=== PATIENT | female | born 1965 | race African-American/Black ===

== ENCOUNTER 2017-12-29 20:47 | Emergency (ER) | payer OTHER ==
--- NOTE | 2017-12-29 21:17 | ER Document Report ---
ED General - General Information source: Patient <ALISHA GOMEZ - Last Filed: 12/29/17 22:03> <MIGDALIA REDDING - Last Filed: 12/29/17 23:21> - General Chief Complaint: Psych Problem Stated Complaint: IVC WITH PAPERS Time Seen by Provider: 12/29/17 21:11 Notes: 52 y.o female with a PMHx of DM and RT hip surgery due to trauma from a . Patient presents to the ED with attempted suicide by carbon monoxide asphyxiation. Son normally keeps in touch with her daily and states that he had not heard from her in 5-6 days because she was not answering the phone. Pt was found in the garage by her son and pt had reported to the police that she was in there for about an hour and a half. Patient denies any recent problems with her son, she states that she was "trying to alleviate the pain" and that she is heartbroken due to her marriage. Pt denies any other medical issues. Patient does not wish to be here and does not have any complaints at this time. (ALISAH GOMEZ) History from the petitioning Installation Tech is that he was dispatched to the house for a welfare check and found the patient in a closed garage in her car with the car running. The son had called 911 requesting a welfare check because he had not heard from his mother in 5 days. The son lives in [place] by history, and is supposed to be on his way here. 2 hours after I was told the son was on his way, he still has not shown up. The deputy earlier stated that he tried to call the son several times but could not get an answer. The patient reports that she wanted to alleviate her pain related to a recent breakup in her marriage. The patient is unwilling to cooperate, despite me telling her that she was here under an involuntary civil commitment order issued by [employer] Knocker and executed by a deputy harbormaster. Splint to her that she does not have a choice in the matter at this time and would be easier on everyone if she would just go along with the nursing staff. She later became quite confrontational, screaming and yelling and had to be restrained. 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 <JASONALISHA ENAMORADO - Last Filed: 12/29/17 22:03> Review of Systems - Review of Systems Constitutional: No symptoms reported EENT: No symptoms reported Cardiovascular: No symptoms reported Respiratory: No symptoms reported Gastrointestinal: No symptoms reported Genitourinary: No symptoms reported Female Genitourinary: No symptoms reported Musculoskeletal: No symptoms reported Skin: No symptoms reported Hematologic/Lymphatic: No symptoms reported Neurological/Psychological: See HPI, Suicidal ideation - in garage with car running -: Yes All other systems reviewed and negative <ALISHA GOMEZ - Last Filed: 12/29/17 22:03> Physical Exam <ALISHA GOMEZ - Last Filed: 12/29/17 22:03> <MIGDALIA REDDING - Last Filed: 12/29/17 23:21> - Notes Notes: General: Alert. Appears despondent and depressed. HEENT: Normocephalic. Atraumatic. PERRL. Extraocular movements intact. Oropharynx clear. Neck: Supple. Non-tender. Respiratory: No respiratory distress. Clear and equal breath sounds bilaterally. Cardiovascular: Regular rate and rhythm. Abdominal: Normal Inspection. Non-tender. No distension. Normal Bowel Sounds. Back: Non-tender. No deformity or step off. Extremities: Moves all four extremities. Upper extremities: Normal inspection. Normal ROM. Lower extremities: Normal inspection. No edema. Normal ROM. Neurological: Normal cognition. AAOx4. Normal speech. Psychological: Normal affect. Normal Mood. Skin: Warm. Dry. Normal color. (ALISHA GOMEZ) Course <ALISHA GOMEZ - Last Filed: 12/29/17 22:03> - Laboratory Result Diagrams: 12/29/17 21:56 12/29/17 21:56 - EKG Interpretation by Nm EKG shows normal: Sinus rhythm, [place], Intervals, QRS Complexes, ST-T Waves Rate: Normal - 98 Rhythm: NSR <MIGDALIA REDDING - Last Filed: 12/29/17 23:21> - Re-evaluation Re-evalutation: 12/29/17 23:05 The patient was uncooperative with staff, she refused to accept the fact that she came in under a civil commitment proceeding. Eventually she had to be put in restraints. (MIGDALIA REDDING) - Laboratory Laboratory results interpreted by me: 12/29/17 21:56 Glucose 119 H AST 68 H ALT 112 H Salicylates < 1.0 L Acetaminophen < 10 L Discharge <ALISHA GOMEZ - Last Filed: 12/29/17 22:03> <MIGDALIA REDDING - Last Filed: 12/29/17 23:21> - Discharge Clinical Impression: Suicide attempt by carbon monoxide poisoning Qualifiers: Encounter type: initial encounter Qualified Code(s): T58.92XA - Toxic effect of carbon monoxide from unspecified source, intentional self-harm, initial encounter Depression Qualifiers: Depression Type: unspecified Qualified Code(s): F32.9 - Major depressive disorder, single episode, unspecified Condition: Stable Disposition: PSYCH HOSP/UNIT Scribe Attestation: 12/29/17 21:57 I personally performed the services described in the documentation, reviewed and edited the documentation which was dictated to the scribe in my presence, and it accurately records my words and actions. (MIGDALIA REDDING) Scribe Documentation - Scribe Written by Oliviaibe:: Leo Bradford [id number] acting as scribe for :: Gabi <ALISHA GOMEZ - Last Filed: 12/29/17 22:03>
[2017-12-29 22:22] LABS: ABSOLUTE EOSINOPHILS # (AUTO) 0.1 10^3/uL (0.0-0.6); ABSOLUTE LYMPHOCYTES (AUTO) 2.3 10^3/uL (0.5-4.7); ABSOLUTE MONOCYTES (AUTO) 0.4 10^3/uL (0.1-1.4); ABSOLUTE NEUT (AUTO) 2.2 10^3/uL (1.7-8.2); BASOPHILS % (AUTO) 0.9 % (0-2); EOSINOPHILS % (AUTO) 2.3 % (0-6); HEMATOCRIT 42.5 % (36.0-47.0); HEMOGLOBIN 14.2 g/dL (12.0-15.5); LYMPHOCYTES % (AUTO) 44.4 % (13-45); MEAN CORPUSCULAR HEMOGLOBIN 29.3 pg (27.0-33.4); MEAN CORPUSCULAR HGB CONC 33.6 g/dL (32.0-36.0); MEAN CORPUSCULAR VOLUME 87 fl (80-97); MONOCYTES % (AUTO) 8.6 % (3-13); PLATELET COUNT 266 10^3/uL (150-450); RED BLOOD COUNT 4.86 10^6/uL (3.72-5.28); RED CELL DISTRIBUTION WIDTH 13.5 % (11.5-14.0); SEGMENTED NEUTROPHILS % (AUTO) 43.8 % (42-78); TOTAL CELLS COUNTED % (AUTO) 100 %; WHITE BLOOD COUNT 5.1 10^3/uL (4.0-10.5)
[2017-12-29 22:29] LABS: ALANINE AMINOTRANSFERASE 112 U/L (9-52); ALBUMIN 4.7 g/dL (3.5-5.0); ALKALINE PHOSPHATASE 83 U/L (38-126); ANION GAP 13 (5-19); ASPARTATE AMINO TRANSFERASE 68 U/L (14-36); BILIRUBIN,DIRECT 0.3 mg/dL (0.0-0.4); BILIRUBIN,TOTAL 0.6 mg/dL (0.2-1.3); BLOOD UREA NITROGEN 8 mg/dL (7-20); CARBON DIOXIDE 27 mmol/L (22-30); CHLORIDE 103 mmol/L (98-107); GLUCOSE 119 mg/dL (75-110); POTASSIUM 3.6 mmol/L (3.6-5.0); SODIUM 142.7 mmol/L (137-145); TOTAL PROTEIN 7.4 g/dL (6.3-8.2)
[2017-12-29 22:40] LABS: ACETAMINOPHEN < 10 ug/mL (10-30); ALCOHOL < 10 mg/dL (NONE DETECTED); SALICYLATE < 1.0 mg/dL (2.0-20.0)
[2017-12-29] MEDS ORDERED: LORAZEPAM 1 MG TABLET PO ONE (23:22)
[2017-12-29] MEDS ORDERED: DIPHENHYDRAMINE HCL 25 MG CAPSULE PO ONE (23:22)
[2017-12-30 02:24] LABS: APPEARANCE,URINE CLEAR; BILIRUBIN,URINE NEGATIVE (NEGATIVE); COLOR,URINE YELLOW; GLUCOSE, URINE NEGATIVE (NEGATIVE); KETONES,URINE 20 mg/dL (NEGATIVE); LEUKOCYTE ESTERASE,URINE TRACE (NEGATIVE); NITRITE,URINE NEGATIVE (NEGATIVE); PROTEIN,URINE NEGATIVE (NEGATIVE); URINE SPECIFIC GRAVITY 1.014; UROBILINOGEN,URINE NEGATIVE mg/dL (<2.0)
[2017-12-30 02:44] LABS: URINE AMPHETAMINES SCREEN UNCONFIRMED POSITIVE; URINE BARBITURATES SCREEN NEGATIVE; URINE BENZODIAZEPINES SCREEN NEGATIVE; URINE COCAINE SCREEN NEGATIVE; URINE MARIJUANA (THC) SCREEN UNCONFIRMED POSITIVE; URINE METHADONE SCREEN NEGATIVE; URINE PHENCYCLIDINE SCREEN NEGATIVE
[2017-12-30] MEDS ORDERED: LORAZEPAM 1 MG TABLET PO ONE ×2 (07:50→12:48)
--- NOTE | 2017-12-30 09:25 | EKG REPORT ---
SEVERITY:- NORMAL ECG - SINUS RHYTHM : Confirmed by: Gurvinder Andrews 30-Dec-2017 09:24:34
--- NOTE | 2017-12-30 09:29 | ER Document Report ---
Doctor's Note Notes: 12/30/17 09:28 Patient was seen and evaluated. Had carbon monoxide attempted SI. Struggling with relationship issues currently they are . Will start on some Cymbalta 30 mg daily. Offered BuSpar but patient refused. Patient did agree to try the Cymbalta. Patient states that she has taken Ativan in the past for her anxiety. I do not have a problem at this time given her some Ativan while in the ER however I have explained to her that she will not get a prescription at discharge. Labs fairly unremarkable. Labs and vital signs stable. Will continue to follow mental health recommendations at this time. 12/30/17 10:34
[2017-12-30] MEDS ORDERED: DULOXETINE HCL 30 MG CAPSULE.DR PO ONE ×2 (10:45→12:00)
[2017-12-30] MEDS ORDERED: DULOXETINE HCL 30 MG CAPSULE.DR PO SCH (10:45)
--- NOTE | 2017-12-30 11:51 | PSYCHOLOGICAL NOTE ---
Psych Note - Psych Note Psych Note: Reason for Consultation: Suicide Attempt, IVC 52 y.o female with a PMHx of DM and RT hip surgery due to trauma from a . Patient presents to the ED with attempted suicide by carbon monoxide asphyxiation. Son normally keeps in touch with her daily and states that he had not heard from her in 5-6 days because she was not answering the phone. Pt was found in the garage by her son and pt had reported to the police that she was in there for about an hour and a half. Patient denies any recent problems with her son, she states that she was "trying to alleviate the pain" and that she is heartbroken due to her marriage. Patient disclosed that her wants a divorce after 13 years of marriage. Patient is very tearful discloses that she came to [facility] when her job asked her to relocate. Since moving she has not made any contact "I just go to work and go home" and has stopped engaging in any hobbies. Patient has a difficult time discussing her emotions and is very distraught at her feelings of abandonment. Patient originally denied attempting suicide disclosing that her car is clean burning in it would not have killed her; however,then stated she turned her car on with the garage closed because "I just wanted the pain to stop." Patient is alert and orientated to person, place, time and circumstance. Mood is irritable and dysphoric with tearful affect. Patient attempted suicide by carbon monoxide asphyxiation. Delusions are absent and behaviors congruent with intact reality based presentation i.e. organized and linear thought processes. Eye contact is fair. Conversational speech is at times difficult to understand because patient is very tearful. Is also noted patient is irritable and tends to have very short argumentative conversations with staff however patient is redirectable. Intellectual abilities appear to be within the average range. Attention and concentration are fair. Insight, judgment, impulse control are poor. Medication recommendations per [facility]'s contracted psychiatrist Dr. Marti MD are as follows: 1. Cymbalta 30 mg daily for depression 2. BuSpar 5 mg twice daily for anxiety and agitation 311 (F32.9) unspecified depressive disorder Impression\\plan: Patient is recommended to continue under IVC. Patient continues have a difficult time discussing her emotions surrounding events leading up to her attempted suicide. Patient's mood is irritable and dysphoric with tearful affect. Her insight, judgment, and impulse control are poor and she is considered a danger to herself. Patient will be reevaluated. Dr. Akbar was consulted and the care and management of this patient; attending physician is agreement with recommendations and disposition.
[2017-12-30] MEDS ORDERED: NAPROXEN 250 MG TABLET PO SCH (23:30)
[2017-12-31 05:58] VITALS: BP 128/77
[2017-12-31] MEDS ORDERED: DULOXETINE HCL 30 MG CAPSULE.DR PO SCH (10:00)
== END 2017-12-31 08:23 ==
LOC: ER 20:47
DX: T58.92XA Toxic effect of carbon monoxide from unspecified source, intentional self-harm, initial encounter (principal); F32.9 Major depressive disorder, single episode, unspecified; E11.9 Type 2 diabetes mellitus without complications; Z78.1 Physical restraint status; X83.8XXA Intentional self-harm by other specified means, initial encounter; Y92.008 Other place in unspecified non-institutional (private) residence as the place of occurrence of the external cause
CPT/HCPCS: 36415; 80053; 80307; 81001; 82375; 82962; 85025; 93005; 93010; 99285